=== PATIENT | male | born 1950 | race Hispanic/Latino ===

== ENCOUNTER 2020-11-09 19:42 | Inpatient (IN) | payer OTHER ==
[~2020-11-09] VITALS: Ht 165.1 cm; Wt 60.8 kg
[2020-11-09] MEDS ORDERED: ASPIRIN 81 MG CHEW TAB PO ONE (20:00)
[2020-11-09 20:15] LABS: BASOPHILS % 0.4 % (0.0-1.0); EOSINOPHILS # (AUTO) 0.1 (0.0-0.4); EOSINOPHILS % 1.7 % (0.0-6.0); HEMATOCRIT 40.8 % (38.2-49.6); HEMOGLOBIN 13.2 g/dL (14.0-18.0); LYMPHOCYTES # (AUTO) 1.1 (1.0-3.2); LYMPHOCYTES % 24.3 % (18.0-39.1); MEAN CORPUSCULAR HEMOGLOBIN 30.7 pg (28-32); MEAN CORPUSCULAR HGB CONC 32.4 g/dL (31-35); MEAN CORPUSCULAR VOLUME 94.9 fL (81-99); MONOCYTES # (AUTO) 0.4 (0.2-0.8); MONOCYTES % 8.8 % (4.4-11.3); NEUTROPHILS % 64.6 % (38.7-80.0); PLATELET COUNT 179 x10e3/uL (140-360); RED CELL DISTRIBUTION WIDTH 12.7 % (11.7-14.4)
[2020-11-09 20:25] LABS: INR 0.94; PROTHROMBIN TIME 13.1 seconds (11.9-14.5)
[2020-11-09 20:26] LABS: PARTIAL THROMBOPLASTIN TIME 27.6 seconds (23.8-35.5)
[2020-11-09 20:35] LABS: ALANINE AMINOTRANSFERASE 23 IU/L (0-55); ALBUMIN 3.9 g/dL (3.5-5.0); ALBUMIN/GLOBULIN RATIO 1.1 (0.8-2.0); ALKALINE PHOSPHATASE 131 IU/L (40-150); BLOOD UREA NITROGEN 11 mg/dL (7-26); BUN/CREATININE RATIO 14 (6-25); CALCIUM 8.6 mg/dL (8.4-10.2); CARBON DIOXIDE 22 mmol/L (22-29); CHLORIDE 106 mmol/L (98-107); CREATINE KINASE 92 IU/L (30-200); EST GLOMERULAR FILTRATION RATE > 60 ML/MIN (60-); GLUCOSE 107 mg/dL (74-118); SODIUM 139 mmol/L (136-145)
[2020-11-09] MEDS ORDERED: NITROGLYCERIN 0.4 MG SUBL SL PRN (21:30)
[2020-11-09] MEDS ORDERED: ONDANSETRON HCL INJ 2MG/ML 2ML 2 MG/ML VIAL IV PRN (21:30)
[2020-11-10] VITALS (9 sets, daily range): BP systolic 119–142; BP diastolic 59–80
[2020-11-10 07:00] LABS: CHOL/HDL RATIO 2.5 (3.9-4.7)
[2020-11-10] MEDS: ASPIRIN 81 MG ENTERIC COATED PO SCH ×2 (07:40→09:45)
[2020-11-10] MEDS ORDERED: IOPAMIDOL 370 MG/ML 200 ML INFUS..BTL INJ ONE (12:26)
[2020-11-10] MEDS ORDERED: SODIUM CHLORIDE 0.9% 50ML 50 ML ONE (12:26)
[2020-11-10] MEDS ORDERED: DIPHENHYDRAMINE HCL INJ 50 MG/ML VIAL ONE (12:39)
[2020-11-10 13:42] LABS: CREATINE KINASE 75 IU/L (30-200)
[2020-11-11] VITALS (8 sets, daily range): BP systolic 120–136; BP diastolic 72–90
[2020-11-11] MEDS ORDERED: REGADENOSON 0.4 MG/5 ML SYR IV ONE (09:03)
[2020-11-11] MEDS: ASPIRIN 81 MG ENTERIC COATED PO SCH (13:02)
[2020-11-12] VITALS (9 sets, daily range): BP systolic 129–149; BP diastolic 71–91
[2020-11-12] MEDS: ASPIRIN 81 MG ENTERIC COATED PO SCH (09:33)
[2020-11-13] VITALS (9 sets, daily range): BP systolic 110–143; BP diastolic 73–85
[2020-11-13] MEDS: ASPIRIN 81 MG ENTERIC COATED PO SCH (08:41)
[2020-11-14] VITALS (11 sets, daily range): BP systolic 104–135; BP diastolic 70–80
[2020-11-14] MEDS: ASPIRIN 81 MG ENTERIC COATED PO SCH (08:20)
[2020-11-14] MEDS ORDERED: IOPAMIDOL 370 MG/ML 200 ML INFUS..BTL INJ ONE (10:54)
[2020-11-14] MEDS ORDERED: MIDAZOLAM HCL 2 MG/2 ML VIAL ONE (10:54)
[2020-11-14] MEDS ORDERED: NITROGLYCERIN/D5W 200 MCG/ML 250 ML ONE (10:54)
[2020-11-14] MEDS ORDERED: FENTANYL CITRATE/PF 100MCG/2 ML INJ ONE (10:54)
[2020-11-14] MEDS ORDERED: SODIUM CHLORIDE 0.9% 1000ML 1,000 ML ONE (10:54)
[2020-11-14] MEDS ORDERED: LIDOCAINE HCL 2% LOCAL 20 ML VIAL ONE (10:54)
[2020-11-14] MEDS ORDERED: HEPARIN SOD/SOD CHLORIDE 1,000 ML ONE (10:54)
[2020-11-14] MEDS ORDERED: VERAPAMIL HCL 2.5 MG/ML 2 ML VIAL ONE (10:54)
[2020-11-14] MEDS ORDERED: DIPHENHYDRAMINE HCL INJ 50 MG/ML VIAL ONE (11:10)
[2020-11-14] MEDS ORDERED: PROAIR HFA INH8.5 GM INH (14:21)
[2020-11-14] MEDS ORDERED: ISOSORBIDE MONO30 MG PO (14:25)
== END 2020-11-14 16:04 | disposition home or self-care (01) | DRG 287 ==
LOC: ER 20:31 → ERHOLD 21:29 → MED/SURG2 11-10 00:45 → OBSVTOIN 11-11 15:00
PROVIDERS: ADMIT Internal Medicine; ATTEND Internal Medicine
PROC: 4A023N7 Measurement of Cardiac Sampling and Pressure, Left Heart, Percutaneous Approach (ICD-10-PCS; principal; 2020-11-14)
PROC: B201YZZ Plain Radiography of Multiple Coronary Arteries using Other Contrast (ICD-10-PCS; 2020-11-14)
DX: I25.119 Atherosclerotic heart disease of native coronary artery with unspecified angina pectoris (principal); I45.10 Unspecified right bundle-branch block; I10 Essential (primary) hypertension; Z20.822 Contact with and (suspected) exposure to COVID-19
CPT/HCPCS: 36415; 71045; 71270; 78452; 80053; 80061; 82550; 82553; 84484; 85025; 85610; 85730; 93005; 93017; 93306; 93454; 99152; 99284; A9502; C1887; G0378; J1200; J2001; J2250; J3010; J7030; Q9967; U0002